=== PATIENT | female | born 1995 ===

== ENCOUNTER 2019-10-04 08:31 | Day surgery (SDC) | payer OTHER, SELFPAY ==
[~2019-10-04] VITALS: Ht 162.6 cm; Wt 63.5 kg
[2019-10-04] MEDS ORDERED: SUGAMMADEX SODIUM 200 MG/2 ML VIAL IV ONE (11:20)
[2019-10-04] MEDS ORDERED: fentaNYL citrate 0.05 MG/ML VIAL ONE (11:20)
[2019-10-04] MEDS ORDERED: SUCCINYLCHOLINE CHLORIDE 200 MG/10 ML VIAL IVP ONE (11:20)
[2019-10-04] MEDS ORDERED: KETOROLAC 30 MG/ML VIAL ONE (11:20)
[2019-10-04] MEDS ORDERED: MEPERIDINE 25 MG/ML SYR ONE (11:20)
[2019-10-04] MEDS ORDERED: DEXAMETHASONE 4 MG/ML VIAL ONE (11:20)
[2019-10-04] MEDS ORDERED: SEVOFLURANE 250 ML BTL INH ONE (11:20)
[2019-10-04] MEDS ORDERED: PROPOFOL 200 MG/20 ML VIAL IV ONE (11:20)
[2019-10-04] MEDS ORDERED: ROCURONIUM 50 MG/5 ML VIAL IV ONE (11:20)
[2019-10-04] MEDS ORDERED: ONDANSETRON 4 MG/2 ML VIAL ONE (11:20)
[2019-10-04] MEDS ORDERED: MIDAZOLAM 2 MG/2 ML VIAL ONE (11:20)
[2019-10-04] MEDS ORDERED: LIDOCAINE 1% 500 MG/50 ML VIAL ONE (11:27)
[2019-10-04] MEDS ORDERED: BUPIVACAINE-MPF 0.25% 30 ML VIAL INJ ONE (11:27)
[2019-10-04] MEDS ORDERED: MEPERIDINE 25 MG/ML SYR IVP PRN (11:55)
[2019-10-04] MEDS ORDERED: diphenhydrAMINE 50 MG/ML VIAL IVP PRN (11:55)
[2019-10-04] MEDS ORDERED: ONDANSETRON 4 MG/2 ML VIAL IVP PRN (11:55)
[2019-10-04] MEDS ORDERED: HYDROmorphone 1 MG/ML AMP IVP PRN ×2 (11:55→13:20)
[2019-10-04] MEDS ORDERED: LACTATED RINGERS 1,000 ML IV SCH (11:55)
[2019-10-04] MEDS ORDERED: MORPHINE SULFATE 4 MG/ML SYR IV PRN (13:20)
[2019-10-04] MEDS ORDERED: ONDANSETRON 4 MG/2 ML VIAL IV PRN (13:20)
[2019-10-04] MEDS ORDERED: HYDROcodone/APAP 5/325 MG 1 TAB TAB PO PRN (13:20)
[2019-10-04] MEDS ORDERED: MORPHINE SULFATE 2 MG/ML SYR IVP PRN (13:20)
[2019-10-04] MEDS: HYDROmorphone PFS 2 MG/ML SYR ONE ×2 (13:28→13:38)
== END 2019-10-04 15:05 | disposition home or self-care (01) ==
LOC: MDS 08:31 → MFCC 08:32 → MDS 15:05
PROVIDERS: ATTEND Surgery
DX: K80.10 Calculus of gallbladder with chronic cholecystitis without obstruction (principal); K21.9 Gastro-esophageal reflux disease without esophagitis; F41.9 Anxiety disorder, unspecified; F32.9 Major depressive disorder, single episode, unspecified; F17.210 Nicotine dependence, cigarettes, uncomplicated; Z79.899 Other long term (current) drug therapy; Z11.59 Encounter for screening for other viral diseases
CPT/HCPCS: 36415; 47562; 71045; 81025; 82374; 86886; 86900; 86901; J0330; J0690; J1100; J1170; J1885; J2001; J2175; J2250; J2405; J2704; J3010; J3490; J7030; J7060; U0003; 88304

== ENCOUNTER 2019-10-05 22:18 | Emergency (ER) | payer OTHER, SELFPAY ==
[~2019-10-05] VITALS: Ht 165.1 cm; Wt 63.5 kg
--- NOTE | 2019-10-05 22:20 | NUR ---
PT TAKEN TO BED 3 WITH W/C ASSIST FROM LOBBY.
[2019-10-05 22:26] VITALS: BP 108/70
--- NOTE | 2019-10-05 22:37 | NUR ---
PT HAD GALLBLADDER SURGERY 2 DAYS AGO AND DEVELOPED RIGHT SHOULDER PAIN WHICH HAS GOTTEN INCREASINGLY WORSE OVER THE LAST FEW HRS. SPOKE TO MD AND WAS TOLD TO COME TO ED IF PAIN PERSISTED AND INCREASED. PT STATES PAIN IS 10/10, AND HURTS SO BAD SHE IS UNABLE TO AMBULATED BY HERSELF. NO SWELLING NOTED TO SHOULDER OR ARM, DENIES NUMBNESS OR TINGLING TO ARM OR FINGERS, PT ABLE TO MOVE HAND ARM AND FINGERS. DENIES SOB OR INCREASE IN PAIN WITH DEEP BREATH. V/S WNL. SURGERY WAS LAPASCOPIC, INCISION SITES WITH DERMABOND IN PLACE, NO DRAINAGE OR REDNESS NOTED. NO SWELLING NOTED TO SHOULDER OR ARM, DENIES NUMBNESS OR TINGLING TO ARM OR FINGERS, PT ABLE TO MOVE HAND ARM AND FINGERS. BED IN LOWEST POSITION AND SIDERAIL UP X 1. 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 NKA HX - GERD
[2019-10-05] MEDS ORDERED: KETOROLAC 60 MG/2 ML VIAL IM ONE (22:40)
[2019-10-05] MEDS ORDERED: MORPHINE SULFATE 4 MG/ML SYR IM ONE (23:00)
[2019-10-05] MEDS ORDERED: ONDANSETRON 4 MG ODT ONE (23:09)
[2019-10-05] MEDS ORDERED: ONDANSETRON 4 MG ODT PO ONE (23:10)
[2019-10-05 23:59] VITALS: BP 108/70
--- NOTE | 2019-10-06 | NUR ---
Patient discharged with v/s stable. Written and verbal after care instructions given and explained. Patient verbalized understanding. Wheel Chair Assisted with to home. All questions addressed prior to discharge. Advised to follow up with PMD.
== END 2019-10-06 | disposition home or self-care (01) ==
LOC: MED 22:18
DX: M25.511 Pain in right shoulder (principal); K21.9 Gastro-esophageal reflux disease without esophagitis; Z90.49 Acquired absence of other specified parts of digestive tract
CPT/HCPCS: 96372; 99284; J1885; J2270; Q0162